=== PATIENT | female | born 1980 ===

== ENCOUNTER → 2021-06-10 08:27 | Outpatient (CLI) | payer OTHER, SELFPAY ==
--- NOTE | ~2021-06-10 | US_ITS ---
EXAMINATION: US pelvic complete w TV EXAM DATE: 06/10/2021 09:01 INDICATION: Abnormal uterine bleeding . TECHNIQUE: Pelvic transabdominal and transvaginal sonogram was performed. There are multiple graysca le and Doppler images available for interpretation. There is no prior study for comparison. FINDINGS: Uterus measures 7.1 x 5.0 x 6.1 cm, retroverted uterus with several fibroids, largest at 4 .5 cm. Endometrial stripe measures 12 mm, within normal limits. There is no free pelvic fluid. Right adnexa: The ovary measures 2.9 x 2.8 x 1.8 cm and is morphologically normal. Ovarian vascular f low confirmed. Left adnexa: The ovary measures 2.6 x 2.1 x 1.8 cm and is morphologically normal. Ovarian vascular fl ow confirmed. IMPRESSION: 1. Fibroids. Reviewed, dictated and finalized at location B. IMPRESSION: 1. Fibroids.
== END ==
PROVIDERS: PCP Physician Assistant; Visit Provider Obstetrics & Gynecology
DX: N93.9 Abnormal uterine and vaginal bleeding, unspecified (principal); D25.9 Leiomyoma of uterus, unspecified
CPT/HCPCS: 76830; 76856